=== PATIENT | male | born 1975 | race Caucasian/White ===

== ENCOUNTER → 2018-03-17 | Outpatient (CLI) | payer OTHER ==
[~2018-03-17] MED LIST: BACTRIM DS TAB1 EACH PO; LIPITOR10 MG PO; PREDNISONE 20 M20 MG PO; ZETIA10 MG PO
[2018-03-17 07:10] LABS: ABSOLUTE EOSINOPHILS 0.3 thou/uL (0.0-0.7); ABSOLUTE LYMPHOCYTES 1.5 thou/uL (0.8-5.3); ABSOLUTE MONOCYTES 0.7 thou/uL (0.0-1.2); ABSOLUTE NEUTROPHILS 3.9 thou/uL (1.6-8.1); BASOPHILS 0.5 %; EOSINOPHILS 4.8 %; HEMATOCRIT 45.5 % (42.0-52.0); HEMOGLOBIN 15.4 gm/dL (14.0-18.0); LYMPHOCYTES 23.7 %; MCH 29.1 pg (26.0-34.0); MCHC 33.8 g/dL (28.0-37.0); MCV 86.1 fL (80.0-100.0); MONOCYTES 11.4 %; MPV 7.6 fl. (7.2-11.1); NUCLEATED RBCS 0 /100WBC; PLATELET COUNT* 219 thou/uL (150-400); POLYS 59.6 %; RBC 5.29 mil/uL (4.50-6.00); RDW-CV 14.1 % (10.5-14.5); WBC 6.5 thou/uL (4.0-11.0)
[2018-03-17 07:23] LABS: ALBUMIN 3.9 g/dL (3.4-5.0); ALKALINE PHOSPHATASE 61 U/L (46-116); ANION GAP 2 mmol/L (7-16); BUN 8 mg/dL (7-18); CALCIUM 8.1 mg/dL (8.5-10.1); CHLORIDE 101 mmol/L (98-107); CHOLESTEROL 169 mg/dL (<200); CO2 34 mmol/L (21-32); CREATININE 1.2 mg/dL (0.6-1.3); GLUCOSE 96 mg/dL (70-99); HDL CHOLESTEROL 63 mg/dL (>40); LDL CHOLESTEROL 89 mg/dL (<100); POTASSIUM 4.2 mmol/L (3.5-5.1); SGOT 34 U/L (15-37); SGPT 41 U/L (30-65); SODIUM 137 mmol/L (136-145); TC:HDL 2.7 Ratio (Not establshd); TOTAL BILIRUBIN 0.9 mg/dL (<0.1-1.0); TOTAL PROTEIN 7.8 g/dL (6.4-8.2); TRIGLYCERIDE 89 mg/dL (<150); VLDL 18 mg/dL (<40)
[2018-03-17 07:33] LABS: SERUM ASSESSMENT Clear
== END ==
LOC: M.LAB 06:52
PROVIDERS: Family Medicine
DX: E78.5 Hyperlipidemia, unspecified (principal)

== ENCOUNTER → 2018-03-21 | Outpatient (CLI) | payer OTHER | LOC: M.CT 07:43 | DX: Z13.6 Encounter for screening for cardiovascular disorders (principal) ==

== ENCOUNTER → 2018-03-22 | Outpatient (CLI) | payer OTHER ==
--- NOTE | 2018-03-22 15:46 | 2DMMODE ---
[place] [address] 2 D/M-MODE ECHOCARDIOGRAM Name: KATY BEE Room: [facility]#: [id number] Admission: 03/22/18 Attend Phys: Chay Vazquez, Discharge: Date of : 75 Date of Service: 03/22/18 1546 Report #: [id number] THIS REPORT FOR: //name// APPROVED REPORT Study performed: 03/22/2018 14:46:22 EXAM: Comprehensive 2D, Doppler, and color-flow Echocardiogram Patient Location: Out-Patient Status: routine BSA: 2.27 HR: 70 bpm BP: 110/80 mmHg Rhythm: NSR Other Information Study Quality: Good Indications Murmur Chest Pain 2D Dimensions LVEF(%): 72.46 (>50%) IVSd: 10.54 (7-11mm) LVOT Diam: 23.90 (18-24mm) LVDd: 47.38 mm PWd: 10.69 (7-11mm) Ascending Ao: 52.42 (22-36mm) LVDs: 27.68 (25-40mm) Aortic Root: 37.66 mm Conner's LVEF: 72.46 % Volumes Left Atrial Volume (Systole) LA ESV Index: 18.20 mL/m2 Aortic Valve AoV Peak Kulwant.: 2.75 m/s AO Peak Gr.: 30.18 mmHg LVOT Max P.83 mmHg AO Mean Gr.: 17.94 mmHg LVOT Mean P.45 mmHg LVOT Max V: 1.10 m/s AO V2 VTI: 63.11 cm LVOT Mean V: 0.72 m/s CORWIN (VTI): 1.59 cm2 LVOT V1 VTI: 22.44 [place] [address] 2 D/M-MODE ECHOCARDIOGRAM Name: KATY BEE Room: [facility]#: [id number] Admission: 03/22/18 Attend Phys: Chay Vazquez, Discharge: Date of : 75 Date of Service: 03/22/18 1546 Report #: [id number] E/A Ratio: 0.74 MV Decel. Time: 350.16 ms MV E Max Kulwant.: 0.46 m/s MV PHT: 101.55 ms MVA (PHT): 2.17 cm2 TDI E/Lateral E': 4.18 E/Medial E': 4.60 Medial E' Kulwant.: 0.10 m/s Lateral E' Kulwant.: 0.11 m/s Pulmonary Valve PV Peak Kulwant.: 1.01 m/s PV Peak Gr.: 4.12 mmHg Left Ventricle The left ventricle is normal size. There is normal LV segmental wall motion. There is normal left ventricular wall thickness. Left ventricular systolic function is normal. The left ventricular ejection fraction is within the normal range. LVEF is 55-60%. The left ventricular diastolic function is normal. Right Ventricle The right ventricle is normal size. The right ventricular systolic function is normal. Atria The left atrium size is normal. The right atrium size is normal. Aortic Valve Aortic valve is bicuspid. Moderate aortic valve sclerosis. Trace aortic regurgitation. Mild to moderate aortic stenosis. Mitral Valve The mitral valve is normal in structure. Trace mitral regurgitation. No evidence of mitral valve stenosis. Tricuspid Valve The tricuspid valve is normal in structure. Unable to assess PA pressure. Trace tricuspid regurgitation. Pulmonic Valve The pulmonary valve is normal in structure. Trace pulmonic regurgitation[place] [address] 2 D/M-MODE ECHOCARDIOGRAM Name: KATY BEE Room: [facility]#: [id number] Admission: 03/22/18 Attend Phys: Chay Vazquez, Discharge: Date of : 75 Date of Service: 03/22/18 1546 Report #: [id number] Aortic root is moderately dilated. Ascending aorta is dilated. (5.4 cm) IVC is normal in size and collapses with >50% inspiration Pericardium There is no pericardial effusion. <Conclusion> The left ventricle is normal size. There is normal left ventricular wall thickness. Left ventricular systolic function is normal. The left ventricular ejection fraction is within the normal range. LVEF is 55-60%. The left ventricular diastolic function is normal. Aortic valve is bicuspid. Moderate aortic valve sclerosis. Trace aortic regurgitation. Mild to moderate aortic stenosis. Trace mitral regurgitation. Ascending aorta is dilated. (5.4 cm) <ELECTRONICALLY SIGNED> By: Chay Vazquez MD, FACC 03/22/18 1546 1546 1546 Chay Vazquez MD, FACC /INF
== END ==
LOC: M.CRD 14:18
DX: I35.0 Nonrheumatic aortic (valve) stenosis (principal); I35.8 Other nonrheumatic aortic valve disorders

== ENCOUNTER → 2018-03-23 | Outpatient (CLI) | payer OTHER | LOC: M.CT 11:49 | DX: I71.2 Thoracic aortic aneurysm, without rupture (principal); I35.8 Other nonrheumatic aortic valve disorders; R91.8 Other nonspecific abnormal finding of lung field ==

== ENCOUNTER → 2018-03-31 | Outpatient (CLI) | payer OTHER | LOC: M.LAB 06:35 | DX: E03.9 Hypothyroidism, unspecified (principal) ==

== ENCOUNTER 2018-04-08 17:32 | Emergency (ER) | payer OTHER ==
[~2018-04-08] VITALS: Ht 188 cm; Wt 98.9 kg
[2018-04-08] MEDS ORDERED: LIPITOR10 MG PO (17:44)
[2018-04-08 18:47] LABS: ABSOLUTE EOSINOPHILS 0.3 thou/uL (0.0-0.7); ABSOLUTE LYMPHOCYTES 1.7 thou/uL (0.8-5.3); ABSOLUTE MONOCYTES 0.9 thou/uL (0.0-1.2); ABSOLUTE NEUTROPHILS 5.1 thou/uL (1.6-8.1); BASOPHILS 0.5 %; EOSINOPHILS 3.4 %; HEMATOCRIT 42.4 % (42.0-52.0); HEMOGLOBIN 14.7 gm/dL (14.0-18.0); LYMPHOCYTES 21.4 %; MCH 29.4 pg (26.0-34.0); MCHC 34.7 g/dL (28.0-37.0); MCV 84.6 fL (80.0-100.0); MONOCYTES 10.8 %; MPV 8.2 fl. (7.2-11.1); NUCLEATED RBCS 0 /100WBC; PLATELET COUNT* 242 thou/uL (150-400); POLYS 63.9 %; RBC 5.01 mil/uL (4.50-6.00); WBC 8.1 thou/uL (4.0-11.0)
[2018-04-08 18:50] LABS: CALCIUM 8.2 mg/dL (8.5-10.1); CREATININE 1.1 mg/dL (0.6-1.3); POTASSIUM 3.5 mmol/L (3.5-5.1)
[2018-04-08] MEDS ORDERED: BACTRIM DS TAB1 EACH PO (18:52)
[2018-04-08] MEDS ORDERED: PREDNISONE 20 M20 MG PO (18:52)
[2018-04-08 18:55] LABS: ALBUMIN 3.9 g/dL (3.4-5.0); TOTAL BILIRUBIN 1.4 mg/dL (<0.1-1.0); TOTAL PROTEIN 7.4 g/dL (6.4-8.2)
[2018-04-08 19:29] VITALS: BP 111/73
[2018-05-06] MEDS ORDERED: ZETIA10 MG PO (15:46)
== END 2018-04-08 19:31 | disposition home or self-care (01) ==
LOC: M.ERS 17:32
PROVIDERS: Nurse Practitioner Family
DX: L03.113 Cellulitis of right upper limb (principal); E78.5 Hyperlipidemia, unspecified; W57.XXXA Bitten or stung by nonvenomous insect and other nonvenomous arthropods, initial encounter; Y93.89 Activity, other specified; Y92.89 Other specified places as the place of occurrence of the external cause; Y99.8 Other external cause status

== ENCOUNTER → 2018-05-06 | Outpatient (CLI) | payer OTHER ==
[2018-05-06] VITALS (7 sets, daily range): BP systolic 111–125; BP diastolic 69–81
[~2018-05-06] VITALS: Ht 188 cm; Wt 92.0 kg
[2018-05-06 15:04] LABS: HEMATOCRIT 46.7 % (42.0-52.0); HEMOGLOBIN 16.1 gm/dL (14.0-18.0); MCH 30.1 pg (26.0-34.0); MCHC 34.4 g/dL (28.0-37.0); MCV 87.4 fL (80.0-100.0); MPV 7.9 fl. (7.2-11.1); RBC 5.34 mil/uL (4.50-6.00); RDW-CV 15.9 % (10.5-14.5); WBC 7.4 thou/uL (4.0-11.0)
[2018-05-06 15:27] LABS: ALBUMIN 4.3 g/dL (3.4-5.0); ALKALINE PHOSPHATASE 56 U/L (46-116); ANION GAP 7 mmol/L (7-16); BUN 9 mg/dL (7-18); CALCIUM 8.9 mg/dL (8.5-10.1); CHLORIDE 102 mmol/L (98-107); CHOLESTEROL 136 mg/dL (<200); CO2 29 mmol/L (21-32); GLUCOSE 83 mg/dL (70-99); HDL CHOLESTEROL 60 mg/dL (>40); LDL CHOLESTEROL 67 mg/dL (<100); POTASSIUM 3.9 mmol/L (3.5-5.1); SGOT 29 U/L (15-37); SGPT 47 U/L (30-65); SODIUM 138 mmol/L (136-145); TC:HDL 2.3 Ratio (Not establshd); TOTAL BILIRUBIN 1.3 mg/dL (<0.1-1.0); TOTAL PROTEIN 7.9 g/dL (6.4-8.2); TRIGLYCERIDE 46 mg/dL (<150); VLDL 9 mg/dL (<40)
[2018-05-06 15:30] LABS: APTT 28.2 Seconds (25.0-31.3); INR 1.1; PROTIME 11.7 Seconds (9.20-11.50); SERUM ASSESSMENT Clear
--- NOTE | 2018-05-06 17:18 | EKG ---
[place] [address] ELECTROCARDIOGRAM REPORT Name: ERIKACORINNEKATY Ash Room: [facility]#: [id number] Admission: 05/06/18 Attend Phys: Chay Vazquez MD Discharge: Date of : 75 Report #: [id number] THIS REPORT FOR: //name// [facility] Test Date: 2018-05-06 Test Time: 15:36:40 Pat Name: KATY BEE Department: Room: Gender: Product Design Manager: [facility] : 1975 Requested By: Chay Vazquez Order Number: [id number] Heber MD: Jeff Patel Measurements Intervals [place] Rate: 59 P: 37 SC: 162 QRS: 1 QRSD: 95 T: 40 QT: 419 QTc: 415 Interpretive Statements Sinus rhythm Baseline wander in lead(s) V3 No previous ECG available for comparison Electronically Signed On 05-06-2018 17:18:50 CDT by Jeff Patel [email or web address] <ELECTRONICALLY SIGNED> By: Jeff Patel MD, [facility] 05/06/18 1718 1536 35 Jeff Patel MD, FACC /EPI
[2018-05-06 17:44] LABS: HCO3 27.1 mmol/L (22.0-26.0); PCO2 VENOUS 48.4 mmHg (41.0-51.0); PO2 VENOUS 45.6 mmHg (35.0-45.0)
[2018-05-06 17:46] LABS: BE -0.2 mmol/L (-2 to +3); HCO3 25.8 mmol/L (22.0-26.0); PO2 VENOUS 44.3 mmHg (35.0-45.0)
[2018-05-06 17:49] LABS: BE -1.1 mmol/L (-2 to +3); HCO3 24.3 mmol/L (22.0-26.0); PO2 81.3 mmHg (75.0-100.0)
--- NOTE | 2018-05-08 14:46 | CARD ---
[address] [address] CARDIAC CATH REPORT Name: KATY BEE [id number] Admission: 05/06/18 Attend Phys: Chay Vazquez MD Discharge: Date of : 75 Report #: [id number] THIS REPORT FOR: //name// APPROVED REPORT Study performed: 05/06/2018 16:39:39 Patient Details Patient Status: Out-Patient Room #: The patient is a 43 year-old male Event Personnel Chay Vazquez Ophthalmologist, Arlene Ashby Retanner, Ondina Anaya, Pete Franks (R) Scrub Procedures Performed Left Heart Cath w/or w/o Coronaries [id number] [facility] , Complete Heart Catheterization Procedure Narrative The patient was brought electively to the Cardiac Catheterization Laboratory and was prepped and draped in a sterile manner. The right femoral was infiltrated with 1% Lidocaine subcutaneous anesthesia. A 6fr Ultimum Sheath sheath was inserted into the right femoral artery. Coronary angiography was performed using coronary diagnostic catheters. The right coronary system was accessed and visualized with a Diagnostic catheter. The left coronary system was accessed and visualized with a Diagnostic catheter. The left ventricle was accessed and visualized with a Diagnostic catheter. Left ventricular/Aortic Valve gradient assessed via catheter pullback. Closure device was deployed with a 6 Fr Mynx 6Fr/7FrMynx. The patient tolerated the procedure well and there were no complications associated with the procedure. There was no hematoma. Intraoperative Conscious Sedation Sedation start time: 1705 Case end Time: 1900 Fentanyl 25 mcg Versed 1 mg Fluoro Time: 45 minutes Dose: 2881 mGy Contrast Type and Amount: Omnipaque 250 ml Diagnostic Cath Left Main Short and normal. Vessel bifur[place] [address] CARDIAC CATH REPORT Name: KATY BEE Room: [facility]#: [id number] Admission: 05/06/18 Attend Phys: Chay Vazquez MD Discharge: Date of : 75 Report #: [id number] descending and circumflex coronary artery. Diagonal 1 Normal moderate in size and branch. Diagonal 2 Normal. Circumflex Normal in the proximal mid and distal segment. OM1 Normal and small in caliber. OM2 Normal large in branch. Right Coronary Normal in the proximal mid and distal segment. R PDA Normal. RPLV Normal. Left Ventriculography Left Ventriculography was not performed. An aortic root injection reveals a dilated ascending arch measuring up to 5.3 cm in diameter. The root measures approximately 3.5 cm in diameter. Hemodynamics The right atrial mean pressure is 3 mmHg. The right ventricular pressure is 29/-2 mmHg. The pulmonary artery pressure is 16/5 mmHg with a mean of 10 mmHg. The mean pulmonary capillary wedge pressure is 4 mmHg. The aortic pressure is 115/74 mmHg with a mean of 91 mmHg. The left ventricular pressure is 150/9 mmHg with a mean of mmHg. The left ventricular end diastolic pressure is 16 mmHg. Pullback from the left ventricle to the aorta revealed a 10 mm gradient across the aortic valve. PaO2 saturation is 78.70 %. The cardiac output using thermo method is 6.17 L/min. The cardiac index using thermo method is 2.80 L/min/m2. A modest gradient was noted in the pullback from the left ventricle to the aortic root. The aortic valve calculates to be 1.6 cm. Right heart pressures were noted to be normal. Pulmonary capillary wedge pressure was normal. O2 saturations reveal no evidence of shunt. Cardiac output was normal. <ELECTRONICALLY SIGNED> By: Chay Vazquez MD, FACC 05/08/18 1446 1446 1446Micwen Vazquez MD, FACC /INF
--- NOTE | 2018-05-08 14:50 | TEE ---
[place] [address] TRANSESOPHAGEAL ECHOCARDIOGRAM Name: KATY BEE Room: [facility]#: [id number] Admission: 05/06/18 Attend Phys: Chay Vazquez, Discharge: Date of : 75 Date of Service: 05/08/18 1450 Report #: [id number] THIS REPORT FOR: //name// APPROVED REPORT Study performed: 05/06/2018 15:45:12 EXAM: Transesophageal Echocardiogram Patient Location: Out-Patient Status: routine BSA: 2.18 HR: 64 bpm BP: 106/73 mmHg Rhythm: NSR Other Information Study Quality: Good Indications Dilated aorta Echo Enhancing Agent Indication: Rule out Shunt Agent(s) / Amount(s) Used: Agitated Saline 10 cc Procedure After obtaining informed consent, patient underwent transesophageal echo in the [employer]. Type of Sedation : Conscious Sedation Sedation was administered by Mart Ashby RN. Sedation start time: 1621 Case end Time: 1641 Sedation was achieved intravenously with: Versed (4) Fentanyl (100) Transesophageal probe was inserted and advanced into esophagus without difficulty by Chay Vazquez MD, FACC. Echo enhancement indication: R/O Septal defect. Echo enhancement agent administered: Agitated Saline The RENEE was performed without complications. Throughout the procedure, the blood pressure, pulse oximetry, cardiac rhythm, and rate were monitored. The patient tolerated the procedure without adverse effects. Recovery from conscious sedation was uneventful and vital signs were stable. Left Ventricle [address] [address] TRANSESOPHAGEAL ECHOCARDIOGRAM Name: KATY BEE Room: [facility]#: [id number] Admission: 05/06/18 Attend Phys: Chay Vazquez, Discharge: Date of : 75 Date of Service: 05/08/18 1450 Report #: [id number] The left ventricle is normal size. There is normal LV segmental wall motion. There is normal left ventricular wall thickness. Left ventricular systolic function is normal. LVEF is 60-65%. Right Ventricle The right ventricle is normal size. The right ventricular systolic function is normal. Atria The left atrium size is normal. No thrombus is visualized in the left atrium or appendage. Interatrial septum is intact without evidence of ASD or PFO. The right atrium size is normal. Aortic Valve The aortic valve appears trileaflet with moderate thickening and retraction of the leaflet tips. Trace aortic regurgitation. Mild aortic stenosis. Mitral Valve The mitral valve is normal in structure. Mild mitral regurgitation. No evidence of mitral valve stenosis. Tricuspid Valve Tricuspid valve is not well visualized. Pulmonic Valve Pulmonic valve is not well visualized. Great Vessels Aortic root is dilated. Ascending aorta is dilated. Pericardium There is no pericardial effusion. <Conclusion> The left ventricle is normal size. There is normal left ventricular wall thickness. Left ventricular systolic function is normal. LVEF is 60-65%. The left atrium size is normal. No thrombus is visualized in the left atrium or appendage. Interatrial septum is intact without evidence of ASD or PFO. The aortic valve appears trileaflet with moderate thickening and retraction of the leaflet tips. [place] [address] TRANSESOPHAGEAL ECHOCARDIOGRAM Name: ERIKAPASCALEDEMETRISCRYSTAL AshEUGENIAHARLEY Room: [facility]#: [id number] Admission: 05/06/18 Attend Phys: Chay Vazquez, Discharge: Date of : 75 Date of Service: 05/08/181449 Report #: [id number] Mild aortic stenosis. Mild mitral regurgitation. Ascending aorta is dilated. <ELECTRONICALLY SIGNED> By: Chay Vazquez MD, FACC 05/08/181449 49 49 Chay Vazquez MD, FACC /INF
--- NOTE | 2018-05-23 09:08 | H ---
[address] [address] HISTORY AND PHYSICAL Name: KATY BEE Room: [facility]#: [id number] Admission: 05/06/18 Attend Phys: Chay Vazquez MD Discharge: Date of : 75 Report #: [id number] THIS REPORT FOR: //name// CC: Odalys Vazquez DATE OF SERVICE: 05/13/2018 CHIEF COMPLAINT: Bicuspid aortic valve. HISTORY OF PRESENT ILLNESS: The patient is a very pleasant 43-year-old gentleman who recently noted to have a cardiac murmur. Echocardiogram shows aortic stenosis and thickening of the bowel to suggest a bicuspid valve. His workup included a CT of the chest that showed a dilated ascending aorta. He is being brought to the hospital for elective left heart catheterization to delineate coronary anatomy. A RENEE will also be obtained to assess aortic valves. CARDIAC RISK FACTORS: Include hyperlipidemia for which he takes atorvastatin and Zetia. He does not have hypertension, diabetes or tobacco use. FAMILY HISTORY: Noncontributory. CURRENT MEDICATIONS: Atorvastatin 10 mg daily and Zetia 10 mg daily. SOCIAL HISTORY: The patient does not smoke. He drinks alcohol socially. REVIEW OF SYSTEMS: As per HPI, otherwise unremarkable. PHYSICAL EXAMINATION: VITAL SIGNS: Stable. Blood pressure 110/68, heart rate 68 and regular. GENERAL: This is a pleasant, healthy appearing gentleman who is in no distress. Mood and affect appropriate. HEENT: Head normocephalic, atraumatic. Pupils equally round and reactive to light. Extraocular muscles intact. Mucous membranes are moist. NECK: Shows no jugular venous distention. There are no carotid bruits. CHEST: Reveals clear lung matt without wheezes or rales. CARDIOVASCULAR: Reveals a regular rhythm with grade 2/6 systolic ejection murmur. I do not appreciate gallop. ABDOMEN: Reveals normal bowel sounds. The abdomen is soft and nontender. EXTREMITIES: Shows no edema. Peripheral pulses are 2+ and easily palpable. SKIN: Warm and dry. IMPRESSION AND RECOMMENDATIONS: [place] [address] HISTORY AND PHYSICAL Name: ERIKAPASCALEDEMETRISMihirCRYSTALEUGENIAHARLEY Room: [facility]#: [id number] Admission: 05/06/18 Attend Phys: Chay Vazquez MD Discharge: Date of : 75 Report #: [id number] 1. Probable bicuspid aortic valve. 2. Ascending aortic root aneurysm. 3. Mixed hyperlipidemia. 4. Mild coronary artery disease based on calcium score. PLAN: 1. The patient is being admitted for elective heart catheterization to delineate coronary anatomy and transesophageal echocardiogram to delineate aortic valve anatomy. 2. Continue current medication. <ELECTRONICALLY SIGNED> By: Chay Vazquez MD, [facility] 05/23/18 0908 1913 1944[place] Dean Vazquez MD, FACC /nt
== END | disposition home or self-care (01) ==
LOC: M.CL 14:26
PROVIDERS: Internal Medicine Cardiovascular Disease
DX: I25.10 Atherosclerotic heart disease of native coronary artery without angina pectoris (principal); I08.0 Rheumatic disorders of both mitral and aortic valves; E78.5 Hyperlipidemia, unspecified; Z79.01 Long term (current) use of anticoagulants; Z79.899 Other long term (current) drug therapy

== ENCOUNTER → 2019-01-03 | Outpatient (CLI) | payer OTHER ==
--- NOTE | 2019-01-03 14:35 | 2DMMODE ---
[place] [address] 2 D/M-MODE ECHOCARDIOGRAM Name: KATY BEE Room: [facility]#: [id number] Admission: 01/03/19 Attend Phys: Chay Vazquez, Discharge: Date of : 75 Date of Service: 01/03/19 1435 Report #: [id number] THIS REPORT FOR: //name// APPROVED REPORT Study performed: 01/03/2019 12:59:46 EXAM: Comprehensive 2D, Doppler, and color-flow Echocardiogram Patient Location: Out-Patient BSA: 2.15 HR: 58 bpm Other Information Study Quality: Good Indications Aortic Valve Disease 2D Dimensions IVSd: 12.87 (7-11mm) LVOT Diam: 20.69 (18-24mm) LVDd: 42.64 mm PWd: 11.88 (7-11mm) Ascending Ao: 28.74 (22-36mm) LVDs: 27.25 (25-40mm) Aortic Root: 24.61 mm Volumes Left Atrial Volume (Systole) LA ESV Index: 18.00 mL/m2 Aortic Valve AoV Peak Kulwant.: 1.61 m/s AO Peak Gr.: 10.41 mmHg LVOT Max P.25 mmHg AO Mean Gr.: 6.07 mmHg LVOT Mean P.53 mmHg LVOT Max V: 0.90 m/s AO V2 VTI: 33.15 cm LVOT Mean V: 0.56 m/s CORWIN (VTI): 2.05 cm2 LVOT V1 VTI: 20.18 cm Mitral Valve E/A Ratio: 1.24 MV Decel. Time: 298.36 ms MV E Max Kulwant.: 0.73 m/s MV PHT: 86.52 ms MVA (PHT): 2.54 [place]2 [place] [address] 2 D/M-MODE ECHOCARDIOGRAM Name: KATY BEE Room: [facility]#: [id number] Admission: 01/03/19 Attend Phys: Chay Vazquez, Discharge: Date of : 75 Date of Service: 01/03/19 1435 Report #: [id number] TDI E/Lateral E': 5.62 E/Medial E': 9.13 Medial E' Kulwnat.: 0.08 m/s Lateral E' Kulwant.: 0.13 m/s Pulmonary Valve PV Peak Kulwant.: 1.08 m/s PV Peak Gr.: 4.71 mmHg Tricuspid Valve RAP Estimate: 5.00 mmHg TR Peak Gr.: 16.66 mmHg RVSP: 21.66 mmHg PA Pressure: 21.66 mmHg Left Ventricle The left ventricle is normal size. There is normal LV segmental wall motion. There is normal left ventricular wall thickness. Left ventricular systolic function is normal. LVEF is 60-65%. The left ventricular diastolic function is normal. Right Ventricle The right ventricle is normal size. The right ventricular systolic function is normal. Atria The left atrium size is normal. The right atrium size is normal. Aortic Valve Bioprosthetic aortic valve is present. No aortic regurgitation is present. There is no aortic valvular stenosis. Mitral Valve The mitral valve is normal in structure. Mild mitral regurgitation. No evidence of mitral valve stenosis. Tricuspid Valve The tricuspid valve is normal in structure. Mild tricuspid regurgitation. No pulmonary hypertension. Pulmonic Valve The pulmonary valve is normal in structure. There is no pulmonic valvular regurgitation. Great Vessels The aortic root is normal in size. IVC [place] [address] 2 D/M-MODE ECHOCARDIOGRAM Name: KATY BEE Room: [facility]#: [id number] Admission: 01/03/19 Attend Phys: Chay Vazquez, Discharge: Date of : 75 Date of Service: 01/03/19 1435 Report #: [id number] collapses >50% with inspiration. Pericardium There is no pericardial effusion. <Conclusion> The left ventricle is normal size. There is normal left ventricular wall thickness. Left ventricular systolic function is normal. LVEF is 60-65%. The left ventricular diastolic function is normal. Bioprosthetic aortic valve is present. No aortic regurgitation is present. There is no aortic valvular stenosis. Mild mitral regurgitation. Mild tricuspid regurgitation. No pulmonary hypertension. IVC is normal in size and collapses >50% with inspiration. <ELECTRONICALLY SIGNED> By: Chay Vazquez MD, FACC 01/03/19 1435 1435 1435 Chay Vazquez MD, FACC /INF
== END ==
LOC: M.CRD 12-12 13:00
DX: I08.1 Rheumatic disorders of both mitral and tricuspid valves (principal); Z95.2 Presence of prosthetic heart valve

== ENCOUNTER → 2019-05-30 | Outpatient (CLI) | payer OTHER ==
[2019-05-30 08:47] LABS: CHOLESTEROL 147 mg/dL (<200); HDL CHOLESTEROL 61 mg/dL (>40); LDL CHOLESTEROL 74 mg/dL (<100); TC:HDL 2.4 Ratio (Not establshd); TRIGLYCERIDE 63 mg/dL (<150); VLDL 13 mg/dL (<40)
[2019-05-30 08:48] LABS: SERUM ASSESSMENT Clear
== END ==
LOC: M.LAB 07:59
PROVIDERS: Internal Medicine Cardiovascular Disease
DX: E78.5 Hyperlipidemia, unspecified (principal)

== ENCOUNTER 2019-09-22 07:47 | Emergency (ER) | payer OTHER ==
[~2019-09-22] VITALS: Ht 188 cm; Wt 92.1 kg
[2019-09-22] MEDS ORDERED: TOPROL XL25 MG PO (07:57)
[2019-09-22] MEDS ORDERED: ASA81BEC PO (07:58)
[2019-09-22] MEDS ORDERED: HYDROCODON-ACE1 EAC7 PO (10:04)
[2019-09-22] MEDS ORDERED: IBUPROFEN 800800 MG PO (10:04)
[2019-09-22 10:13] VITALS: BP 122/70
== END 2019-09-22 10:14 | disposition home or self-care (01) ==
LOC: M.ERS 07:47
DX: S82.142A Displaced bicondylar fracture of left tibia, initial encounter for closed fracture (principal); X50.1XXA Overexertion from prolonged static or awkward postures, initial encounter; Y93.89 Activity, other specified; Y92.89 Other specified places as the place of occurrence of the external cause; Y99.8 Other external cause status

== ENCOUNTER → 2019-10-04 | Outpatient (CLI) | payer OTHER ==
[~2019-10-04] MED LIST changes: +ASA81BEC PO; +HYDROCODON-ACE1 EAC7 PO; +IBUPROFEN 800800 MG PO; +TOPROL XL25 MG PO
== END ==
LOC: M.RAD 14:33
DX: S82.002A Unspecified fracture of left patella, initial encounter for closed fracture (principal); J90 Pleural effusion, not elsewhere classified; X58.XXXA Exposure to other specified factors, initial encounter; Y93.89 Activity, other specified; Y92.89 Other specified places as the place of occurrence of the external cause; Y99.8 Other external cause status

== ENCOUNTER → 2019-10-25 | Outpatient (CLI) | payer OTHER | LOC: M.RAD 14:02 | DX: S82.002A Unspecified fracture of left patella, initial encounter for closed fracture (principal); X58.XXXA Exposure to other specified factors, initial encounter; Y93.89 Activity, other specified; Y92.89 Other specified places as the place of occurrence of the external cause; Y99.8 Other external cause status ==

== ENCOUNTER → 2019-10-31 | Outpatient (CLI) | payer OTHER | LOC: M.MRI 11:30 | DX: S82.002A Unspecified fracture of left patella, initial encounter for closed fracture (principal); S83.242A Other tear of medial meniscus, current injury, left knee, initial encounter; X58.XXXA Exposure to other specified factors, initial encounter; Y93.89 Activity, other specified; Y92.89 Other specified places as the place of occurrence of the external cause; Y99.8 Other external cause status ==

== ENCOUNTER → 2019-11-07 | Outpatient (CLI) | payer OTHER ==
--- NOTE | 2019-11-07 14:11 | 2DMMODE ---
[place] [address] 2 D/M-MODE ECHOCARDIOGRAM Name: KATY BEE Room: [facility]#: [id number] Admission: 11/07/19 Attend Phys: Chay Vazquez, Discharge: Date of : 75 Date of Service: 11/07/19 1409 Report #: [id number] THIS REPORT FOR: cc: Odalys Watson Linda J. DO Liston, Michael J. MD [facility] ~ APPROVED REPORT Study performed: 11/07/2019 09:49:21 EXAM: Comprehensive 2D, Doppler, and color-flow Echocardiogram Patient Location: Out-Patient Status: routine BSA: 2.19 HR: 63 bpm Rhythm: NSR Other Information Study Quality: Good Indications Aortic Valve Disease 2D Dimensions IVSd: 8.57 (7-11mm) LVOT Diam: 22.88 (18-24mm) LVDd: 47.75 mm PWd: 8.28 (7-11mm) LVDs: 30.68 (25-40mm) Aortic Root: 34.75 mm Volumes Left Atrial Volume (Systole) LA ESV Index: 14.90 mL/m2 Aortic Valve AoV Peak Kulwant.: 1.71 m/s AO Peak Gr.: 11.71 mmHg LVOT Max P.25 mmHg AO Mean Gr.: 7.11 mmHg LVOT Mean P.34 mmHg LVOT Max V: 0.75 m/s AO V2 VTI: 37.43 cm LVOT Mean V: 0.55 m/s CORWIN (VTI): 1.87 cm2 LVOT V1 VTI: 16.99 [place] [address] 2 D/M-MODE ECHOCARDIOGRAM Name: ROHITCRYSTALEUGENIAHARLEY Room: [facility]#: [id number] Admission: 11/07/19 Attend Phys: Chay Vazquez, Discharge: Date of : 75 Date of Service: 11/07/19 1409 Report #: [id number] Mitral Valve E/A Ratio: 1.20 MV Decel. Time: 300.43 ms MV E Max Kulwant.: 0.61 m/s MV PHT: 87.13 ms MVA (PHT): 2.53 cm2 TDI E/Lateral E': 4.69 E/Medial E': 5.08 Medial E' Kulwant.: 0.12 m/s Lateral E' Kulwant.: 0.13 m/s Pulmonary Valve PV Peak Kulwant.: 1.03 m/s PV Peak Gr.: 4.27 mmHg Tricuspid Valve RAP Estimate: 5.00 mmHg TR Peak Gr.: 15.30 mmHg RVSP: 20.00 mmHg PA Pressure: 20.00 mmHg Left Ventricle The left ventricle is normal size. There is normal LV segmental wall motion. There is normal left ventricular wall thickness. Left ventricular systolic function is normal. LVEF is 60-65%. The left ventricular diastolic function is normal. Right Ventricle The right ventricle is normal size. The right ventricular systolic function is normal. Atria The left atrium size is normal. The right atrium size is normal. Aortic Valve Bioprosthetic aortic valve is present. No aortic regurgitation is present. There is no aortic valvular stenosis. Mitral Valve The mitral valve is normal in structure. Mild mitral regurgitation. No evidence of mitral valve stenosis. Tricuspid Valve The tricuspid valve is normal in structure. Trace tricuspid regurgitation. [place] [address] 2 D/M-MODE ECHOCARDIOGRAM Name: KATY BEE Room: [facility]#: [id number] Admission: 11/07/19 Attend Phys: Chay Vazquez, Discharge: Date of : 75 Date of Service: 11/07/19 1409 Report #: [id number] Pulmonic Valve The pulmonary valve is normal in structure. There is no pulmonic valvular regurgitation. Great Vessels The aortic root is normal in size. IVC is normal in size and collapses >50% with inspiration. Pericardium There is no pericardial effusion. <Conclusion> The left ventricle is normal size. There is normal left ventricular wall thickness. Left ventricular systolic function is normal. LVEF is 60-65%. The left ventricular diastolic function is normal. Bioprosthetic aortic valve is present. No aortic regurgitation is present. There is no aortic valvular stenosis. Mild mitral regurgitation. Trace tricuspid regurgitation. No pulmonary hypertension. IVC is normal in size and collapses >50% with inspiration. <ELECTRONICALLY SIGNED> By: Chay Vazquez MD, FACC 11/07/19 1409 140 140 Chay Vazquez MD, FACC /INF
== END ==
LOC: M.CRD 09:52
DX: I34.2 Nonrheumatic mitral (valve) stenosis (principal); Q23.1 Congenital insufficiency of aortic valve

== ENCOUNTER → 2020-02-05 | Outpatient (CLI) | payer OTHER | LOC: M.LAB 07:52 | PROVIDERS: ATTEND Internal Medicine Cardiovascular Disease | DX: Z11.59 Encounter for screening for other viral diseases (principal) ==

== ENCOUNTER → 2020-05-23 | Outpatient (CLI) | payer OTHER ==
[2020-05-23 10:23] LABS: CHOLESTEROL 137 mg/dL (<200); HDL CHOLESTEROL 63 mg/dL (>40); LDL CHOLESTEROL 65 mg/dL (<100); TC:HDL 2.2 Ratio (Not establshd); TRIGLYCERIDE 45 mg/dL (<150); VLDL 9 mg/dL (<40)
[2020-05-23 10:29] LABS: SERUM ASSESSMENT Clear
== END ==
LOC: M.LAB 09:49
PROVIDERS: ATTEND Internal Medicine Cardiovascular Disease
DX: E78.5 Hyperlipidemia, unspecified (principal)

== ENCOUNTER → 2020-10-22 | Outpatient (CLI) | payer OTHER ==
--- NOTE | 2020-10-22 11:52 | 2DMMODE ---
[place] [address] 2 D/M-MODE ECHOCARDIOGRAM Name: KATY BEE Room: [facility]#: [id number] Admission: 10/22/20 Attend Phys: Chay Vazquez, Discharge: Date of : 75 Date of Service: 10/22/20 1152 Report #: [id number] THIS REPORT FOR: cc: Odalys Watson Linda J. DO Liston, Michael J. MD [facility] ~ APPROVED REPORT Study performed: 10/22/2020 08:31:58 EXAM: Comprehensive 2D, Doppler, and color-flow Echocardiogram Patient Location: Out-Patient BSA: 2.22 HR: 67 bpm Other Information Study Quality: Good Indications Aortic Valve Disease 2D Dimensions IVSd: 8.96 (7-11mm) LVOT Diam: 21.30 (18-24mm) LVDd: 47.49 mm PWd: 9.86 (7-11mm) Ascending Ao: 28.72 (22-36mm) LVDs: 29.65 (25-40mm) Aortic Root: 24.31 mm Volumes Left Atrial Volume (Systole) LA ESV Index: 14.90 mL/m2 Aortic Valve AoV Peak Kulwant.: 1.84 m/s AO Peak Gr.: 13.53 mmHg LVOT Max P.07 mmHg AO Mean Gr.: 7.70 mmHg LVOT Mean P.54 mmHg LVOT Max V: 0.88 m/s AO V2 VTI: 35.76 cm LVOT Mean V: 0.57 m/s CORWIN (VTI): 1.94 cm2 LVOT V1 VTI: 19.45 cm Mitral Valve E/A Ratio: 1.34 [place] [address] 2 D/M-MODE ECHOCARDIOGRAM Name: KATY BEE Room: [facility]#: [id number] Admission: 10/22/20 Attend Phys: Chay Vazquez, Discharge: Date of : 75 Date of Service: 10/22/20 1152 Report #: [id number] MV Decel. Time: 203.05 ms MV E Max Kulwant.: 0.81 m/s MV PHT: 58.88 ms MVA (PHT): 3.74 cm2 TDI E/Lateral E': 6.23 E/Medial E': 8.10 Medial E' Kulwant.: 0.10 m/s Lateral E' Kulwant.: 0.13 m/s Pulmonary Valve PV Peak Kulwant.: 0.96 m/s PV Peak Gr.: 3.71 mmHg Tricuspid Valve RAP Estimate: 5.00 mmHg TR Peak Gr.: 17.27 mmHg RVSP: 22.27 mmHg PA Pressure: 22.27 mmHg Left Ventricle The left ventricle is normal size. There is normal LV segmental wall motion. There is normal left ventricular wall thickness. Left ventricular systolic function is normal. LVEF is 65-70%. The left ventricular diastolic function is normal. Right Ventricle The right ventricle is normal size. The right ventricular systolic function is normal. Atria The left atrium size is normal. The right atrium size is normal. Aortic Valve The aortic valve is normal in structure. Bioprosthetic aortic valve is present. No aortic regurgitation is present. There is no aortic valvular stenosis. Mitral Valve The mitral valve is normal in structure. Trace mitral regurgitation. No evidence of mitral valve stenosis. Tricuspid Valve The tricuspid valve is normal in structure. Mild tricuspid regurgitation. No pulmonary hypertension[place] [address] 2 D/M-MODE ECHOCARDIOGRAM Name: KATY BEE Room: [facility]#: [id number] Admission: 10/22/20 Attend Phys: Chay Vazquez, Discharge: Date of : 75 Date of Service: 10/22/20 1152 Report #: [id number] The pulmonary valve is normal in structure. There is no pulmonic valvular regurgitation. Great Vessels The aortic root is normal in size. IVC is normal in size and collapses >50% with inspiration. Pericardium There is no pericardial effusion. <Conclusion> The left ventricle is normal size. There is normal left ventricular wall thickness. Left ventricular systolic function is normal. LVEF is 65-70%. The left ventricular diastolic function is normal. There is normal LV segmental wall motion. Bioprosthetic aortic valve is present. No aortic regurgitation is present. There is no aortic valvular stenosis. Trace mitral regurgitation. Mild tricuspid regurgitation. No pulmonary hypertension. IVC is normal in size and collapses >50% with inspiration. <ELECTRONICALLY SIGNED> By: Chay Vazquez MD, FACC 10/22/20 1152 1152 1152 Chay Vazquez MD, FACC /INF
== END ==
LOC: M.CRD 08:39
PROVIDERS: ATTEND Internal Medicine Cardiovascular Disease
DX: I07.1 Rheumatic tricuspid insufficiency (principal); I71.2 Thoracic aortic aneurysm, without rupture; Z95.2 Presence of prosthetic heart valve

== ENCOUNTER → 2021-05-23 | Outpatient (CLI) | payer OTHER ==
[2021-05-23 09:17] LABS: CHOLESTEROL 136 mg/dL (<200); HDL CHOLESTEROL 63 mg/dL (>40); LDL CHOLESTEROL 61 mg/dL (<100); TC:HDL 2.2 Ratio (Not establshd); TRIGLYCERIDE 61 mg/dL (<150); VLDL 12 mg/dL (<40)
[2021-05-23 09:24] LABS: SERUM ASSESSMENT Clear
== END ==
LOC: M.LAB 08:47
PROVIDERS: ATTEND Internal Medicine Cardiovascular Disease
DX: E78.5 Hyperlipidemia, unspecified (principal)